=== PATIENT | female | born 1945 | race Caucasian/White ===

== ENCOUNTER 2016-11-26 06:12 | Emergency (ER) | payer MEDICARE, OTHER | END 2016-11-26 11:45 | disposition home or self-care (01) | LOC: ER1 06:12 | DX: S81.012A Laceration without foreign body, left knee, initial encounter (principal); S80.02XA Contusion of left knee, initial encounter; I12.9 Hypertensive chronic kidney disease with stage 1 through stage 4 chronic kidney disease, or unspecified chronic kidney disease; N18.9 Chronic kidney disease, unspecified; Z88.5 Allergy status to narcotic agent; Z79.02 Long term (current) use of antithrombotics/antiplatelets; Z79.899 Other long term (current) drug therapy; W01.10XA Fall on same level from slipping, tripping and stumbling with subsequent striking against unspecified object, initial encounter | CPT/HCPCS: 12001; 73564; 99283 ==

== ENCOUNTER 2016-11-28 11:07 | Emergency (ER) | payer MEDICARE, OTHER | END 2016-11-28 11:25 | disposition home or self-care (01) | LOC: ER1 11:07 | DX: Z48.01 Encounter for change or removal of surgical wound dressing (principal); Z88.5 Allergy status to narcotic agent | CPT/HCPCS: 99282 ==

== ENCOUNTER → 2020-08-09 | Outpatient (CLI) | payer MEDICARE ==
[~2020-08-09] MED LIST: ASPIR 8181 MG PO; B-125000 MCG SL; CALCIUM + D3 E1 EACH PO; CALCIUM600 MG PO; COL-RITE250 MG PO; CRANBERRY TABLET PO; D3-20002000 UNIT PO; DESYREL 50 MG T50 MG PO; DITROPAN 5 MG TA5 MG PO; FERROUS SULFAT325 M2 PO; FLONASE 0.05% N16 GM; IMDUR ER TAB 3030 MG PO; MIRALAX17 GM PO; MULTIVITAMINS1 EAC1 PO; NEURONTIN 100100 MG PO; NITROSTAT0.4 MG SL; NORVASC 5 MG TAB5 MG PO; PLAVIX 75 MG TA75 MG PO; PRAVACHOL40 MG PO; SINGULAIR10 MG PO; TYLENOL 325MG325 MG PO; VITAMIN B COMP1 EACH PO; ZANTAC 150 MG150 MG PO
[2020-08-10 06:40] LABS: CREATININE, URINE 31.5 mg/dL (Not Estab.)
== END ==
LOC: LAB 11:11
PROVIDERS: Internal Medicine Nephrology
DX: N18.30 Chronic kidney disease, stage 3 unspecified (principal); E87.1 Hypo-osmolality and hyponatremia
CPT/HCPCS: 36415; 80048; 82043; 82570

== ENCOUNTER → 2021-02-19 | Outpatient (CLI) | payer MEDICARE | LOC: MAMO 15:12 | DX: Z12.31 Encounter for screening mammogram for malignant neoplasm of breast (principal) | CPT/HCPCS: 77063; 77067 ==

== ENCOUNTER → 2021-05-15 | Outpatient (CLI) | payer MEDICARE | LOC: LAB 12:21 | PROVIDERS: Internal Medicine Nephrology | DX: N18.31 Chronic kidney disease, stage 3a (principal); E55.9 Vitamin D deficiency, unspecified | CPT/HCPCS: 36415; 80053; 82570; 84156 ==

== ENCOUNTER → 2021-05-28 | Outpatient (CLI) | payer MEDICARE | LOC: EXRD 13:35 | DX: M81.0 Age-related osteoporosis without current pathological fracture (principal); M16.12 Unilateral primary osteoarthritis, left hip | CPT/HCPCS: 77080 ==

== ENCOUNTER → 2021-07-22 | Outpatient (CLI) | payer MEDICARE | LOC: LAB 09:15 | PROVIDERS: Internal Medicine Nephrology | DX: N18.31 Chronic kidney disease, stage 3a (principal) | CPT/HCPCS: 36415; 80053; 82570; 84156 ==

== ENCOUNTER → 2021-07-22 | Outpatient (CLI) | payer MEDICARE | LOC: EXRD 13:52 | DX: R31.9 Hematuria, unspecified (principal); N27.1 Small kidney, bilateral | CPT/HCPCS: 76775 ==

== ENCOUNTER → 2021-08-11 | Outpatient (CLI) | payer MEDICARE, OTHER ==
[~2021-08-11] VITALS: Ht 152.4 cm; Wt 58.5 kg
== END ==
LOC: CT 07:51 → OPSV 07:51 → CT 09:30
DX: I73.9 Peripheral vascular disease, unspecified (principal); M81.0 Age-related osteoporosis without current pathological fracture; E78.5 Hyperlipidemia, unspecified; I10 Essential (primary) hypertension
CPT/HCPCS: 75635; 96372; Q9967

== ENCOUNTER 2021-09-19 12:43 | Observation (INO) | payer MEDICARE, OTHER ==
[~2021-09-19] VITALS: Ht 152.4 cm; Wt 57.2 kg
[~2021-09-19 12:43] MED LIST changes: -CRANBERRY TABLET PO; -FLONASE 0.05% N16 GM; +LEVOFLOXACIN500 MG PO; +METRONIDAZOLE500 MG PO; -MULTIVITAMINS1 EAC1 PO; -NEURONTIN 100100 MG PO; -NORVASC 5 MG TAB5 MG PO
[2021-09-19 14:09] LABS: HEMOGLOBIN 13.6 gm/dl (12.3-15.3); RED BLOOD COUNT 4.25 M/UL (4.00-5.10); WHITE BLOOD COUNT 4.6 K/UL (4.5-11.0)
[2021-09-19] MEDS ORDERED: ZYLOPRIM 100 M100 MG PO (21:22)
[2021-09-19] MEDS ORDERED: PEPCID20 MG PO (21:24)
[2021-09-19] MEDS ORDERED: COZAAR100 MG PO (21:25)
[2021-09-19] MEDS ORDERED: PROTONIX20 MG PO (21:26)
[2021-09-20 04:13] LABS: HEMOGLOBIN 13.2 gm/dl (12.3-15.3); RED BLOOD COUNT 4.1 M/UL (4.00-5.10); WHITE BLOOD COUNT 3.8 K/UL (4.5-11.0)
--- NOTE | 2021-09-20 04:41 | NUR ---
VSS. ROOM AIR. SODIUM WITH AM LABS AT 135. NO COMPLAINTS AT THIS TIME.
[2021-09-20] MEDS ORDERED: CALCIUM 600 +1 EAC4 PO (08:11)
[2021-09-20] MEDS ORDERED: ZINC50 M2 PO (08:13)
[2021-09-20] MEDS ORDERED: NEURONTIN300 MG PO (12:36)
[2021-09-20] MEDS ORDERED: FLONASE 0.05% N16 GM (12:37)
[2021-09-20] MEDS ORDERED: MULTIVITAMINS1 EAC2 PO (12:39)
[2021-09-20] MEDS ORDERED: CRANBERRY PLUS1 EAC1 PO (12:40)
[2021-09-20] MEDS ORDERED: NORVASC2.5 MG PO (21:17)
[2021-09-20] MEDS ORDERED: CLARITIN10 MG PO (21:23)
[2021-09-20] MEDS ORDERED: RAMELTEON8 MG PO (21:27)
[2021-09-21 10:23] LABS: HEMOGLOBIN 13.2 gm/dl (12.3-15.3); RED BLOOD COUNT 4.13 M/UL (4.00-5.10); WHITE BLOOD COUNT 3.7 K/UL (4.5-11.0)
--- NOTE | 2021-09-21 16:33 | NUR ---
0734- NURSE ADMINISTERING LOVENOX INJECTION, NOTICED BRUISE ON RIGHT SIDE OF ABDOMEN, PURPLE IN COLOR. NOTIFED DR. ALEXANDRA. WILL CONINTUE TO MONITOR.
[2021-09-21] MEDS ORDERED: CIPRO500 MG PO (16:41)
[2021-09-21] MEDS ORDERED: METRONIDAZOLE500 MG PO (16:54)
== END 2021-09-21 18:42 | disposition home or self-care (01) ==
LOC: ER1 12:43 → M/S 16:47 → CDU 16:47 → M/S 16:47
PROVIDERS: Emergency Medicine; Internal Medicine Nephrology; ADMIT Internal Medicine
DX: E87.1 Hypo-osmolality and hyponatremia (principal); E86.0 Dehydration; K43.9 Ventral hernia without obstruction or gangrene; I10 Essential (primary) hypertension; R10.9 Unspecified abdominal pain; E78.5 Hyperlipidemia, unspecified; K52.9 Noninfective gastroenteritis and colitis, unspecified; M10.9 Gout, unspecified; E03.9 Hypothyroidism, unspecified; K29.70 Gastritis, unspecified, without bleeding; G62.9 Polyneuropathy, unspecified; Z79.02 Long term (current) use of antithrombotics/antiplatelets; Z79.82 Long term (current) use of aspirin; Z79.899 Other long term (current) drug therapy; Z88.5 Allergy status to narcotic agent
CPT/HCPCS: 36415; 80048; 80053; 81001; 82436; 82550; 82553; 83605; 83690; 83880; 83935; 84133; 84295; 84300; 84484; 85025; 85027; 87086; 93005; 96372; 96374; 96375; 96376; 99285; G0378; J1170; J1335; J1644; J2405; Q9967

== ENCOUNTER → 2021-09-28 | Outpatient (CLI) | payer MEDICARE, OTHER ==
[~2021-09-28] MED LIST changes: +CALCIUM 600 +1 EAC4 PO; +CIPRO500 MG PO; +CLARITIN10 MG PO; +COZAAR100 MG PO; +CRANBERRY PLUS1 EAC1 PO; +FLONASE 0.05% N16 GM; +MULTIVITAMINS1 EAC2 PO; +NEURONTIN300 MG PO; +NORVASC2.5 MG PO; +PEPCID20 MG PO; +PROTONIX20 MG PO; +RAMELTEON8 MG PO; +ZINC50 M2 PO; +ZYLOPRIM 100 M100 MG PO
== END ==
LOC: LAB 09:24
PROVIDERS: Internal Medicine
DX: E87.1 Hypo-osmolality and hyponatremia (principal)
CPT/HCPCS: 36415; 80048

== ENCOUNTER → 2021-10-07 | Outpatient (CLI) | payer MEDICARE, OTHER ==
[2021-10-07 13:14] LABS: BUN/CREATININE RATIO 9 (0-10)
== END ==
LOC: LAB 12:00
PROVIDERS: Internal Medicine Nephrology
DX: E87.1 Hypo-osmolality and hyponatremia (principal)
CPT/HCPCS: 36415; 80048

== ENCOUNTER → 2021-10-14 | Outpatient (CLI) | payer MEDICARE, OTHER ==
[2021-10-14 15:29] LABS: BUN/CREATININE RATIO 10 (0-10)
== END ==
LOC: LAB 14:22
PROVIDERS: Internal Medicine Nephrology
DX: E87.1 Hypo-osmolality and hyponatremia (principal)
CPT/HCPCS: 36415; 80048

== ENCOUNTER → 2021-10-28 | Outpatient (CLI) | payer MEDICARE, OTHER | LOC: LAB 12:27 | PROVIDERS: Internal Medicine Nephrology | DX: N18.31 Chronic kidney disease, stage 3a (principal) | CPT/HCPCS: 36415; 80048 ==

== ENCOUNTER → 2021-12-09 | Outpatient (CLI) | payer MEDICARE, OTHER | LOC: LAB 08:43 | PROVIDERS: Internal Medicine Nephrology | DX: N18.31 Chronic kidney disease, stage 3a (principal); E55.9 Vitamin D deficiency, unspecified; M10.9 Gout, unspecified; E87.1 Hypo-osmolality and hyponatremia | CPT/HCPCS: 36415; 80053; 82436; 82570; 83935; 84133; 84156; 84300; 84550 ==

== ENCOUNTER → 2022-01-13 | Outpatient (CLI) | payer MEDICARE, OTHER | LOC: LAB 12:33 | PROVIDERS: Internal Medicine Nephrology | DX: E87.1 Hypo-osmolality and hyponatremia (principal) | CPT/HCPCS: 36415; 80048 ==

== ENCOUNTER → 2022-02-25 | Outpatient (CLI) | payer MEDICARE, OTHER ==
[~2022-02-25] MED LIST changes: +ACID REDUCER20 MG PO; +ANTACID; +VITAMIN D350 MCG PO
== END ==
LOC: OPSV2 12:30
DX: Z01.810 Encounter for preprocedural cardiovascular examination (principal)
CPT/HCPCS: 93005

== ENCOUNTER → 2022-03-17 | Outpatient (CLI) | payer MEDICARE, OTHER ==
[~2022-03-17] MED LIST changes: +COLACE100 MG PO; +HYDROCODON-ACE1 EAC4 PO
== END ==
LOC: LAB 12:57
PROVIDERS: Internal Medicine Nephrology
DX: N18.31 Chronic kidney disease, stage 3a (principal); E87.1 Hypo-osmolality and hyponatremia; E55.9 Vitamin D deficiency, unspecified; M10.9 Gout, unspecified
CPT/HCPCS: 36415; 80053; 82570; 84156; 84550